=== PATIENT | female | born 1975 | race Caucasian/White ===

== ENCOUNTER 2022-02-05 12:34 | Outpatient (CLI) | payer OTHER | END 2022-02-05 12:35 | disposition home or self-care (01) | LOC: BICULT 12:34 | PROVIDERS: ATTEND Nurse Practitioner Family | DX: R39.14 Feeling of incomplete bladder emptying (principal) | CPT/HCPCS: 76770 ==

== ENCOUNTER 2022-04-09 11:07 | Outpatient (CLI) | payer OTHER | END 2022-04-09 11:08 | disposition home or self-care (01) | LOC: BICMAMMO 11:07 | PROVIDERS: ATTEND Nurse Practitioner Family | DX: Z12.31 Encounter for screening mammogram for malignant neoplasm of breast (principal) | CPT/HCPCS: 77067 ==

== ENCOUNTER 2022-08-11 17:42 | Emergency (ER) | payer OTHER ==
[2022-08-11 18:34] LABS: #Eosinphils 0.1 thou/uL (0.0-0.7); #Monocytes 0.4 thou/uL (0.11-0.59); %Basophils 0.5 % (0.0-1.0); %Eosinophils 1.4 % (0.0-10.0); %Lymphocytes 24.1 % (21.0-51.0); %Monocytes 5.4 % (0.0-10.0); %Neutrophils 68.3 % (42.0-75.0); Hemoglobin 12.1 g/dL (12.0-16.0); Mean Corpuscular HGB CONC 34.5 g/dL (32.0-36.0); Mean Corpuscular Hemoglobin 33.2 pg (27.0-31.0); Mean Corpuscular Volume 96.4 fl (78.0-98.0); Mean Platelet Volume 10.1 fL (7.4-10.4); Platelet Count 177 10x3/uL (130-400); RBC Distribution Width 12.1 % (11.5-14.5); Red Blood Cell (RBC) Count 3.64 mill/uL (4.20-5.40); White Blood Cell (WBC) Count 7.4 10x3/uL (4.8-10.8)
[2022-08-11 19:07] LABS: ALT (SGPT) 8 U/L (8-55); AST (SGOT) 12 U/L (5-34); Albumin 4.4 g/dL (3.5-5.0); Alkaline Phosphatase 56 U/L (40-110); Anion Gap 9 mmol/L (10-20); BUN (Urea Nitrogen) 16 mg/dL (7.0-18.7); Bilirubin, Total 0.3 mg/dL (0.2-1.2); Calc. Creatinine Clearance 0 mL/min (70-130); Calcium 9.2 mg/dL (7.8-10.44); Carbon Dioxide 25 mmol/L (22-29); Chloride 105 mmol/L (98-107); Estimated GFR 66; Globulin 2.1 g/dL (2.4-3.5); Glucose 186 mg/dL (70-105); Potassium 3.6 mmol/L (3.5-5.1); Protein, Total 6.5 g/dL (6.0-8.3)
[2022-08-11 19:08] LABS: Sodium 135 mmol/L (136-145)
== END 2022-08-11 19:48 | disposition home or self-care (01) ==
LOC: ERS 17:42
DX: G50.0 Trigeminal neuralgia (principal)
CPT/HCPCS: 36415; 70450; 80053; 85025